=== PATIENT | female | born 1970 | race Asian ===

== ENCOUNTER → 2017-07-17 | Outpatient (CLI) | payer BC ==
--- NOTE | 2017-07-17 16:06 | Diagnostic Imaging Report ---
#[id number] - [id number] #UNILATERAL LEFT DIGITAL DIAGNOSTIC MAMMOGRAM WITH CAD: 07/17/2017 Comparison is made to exams dated: 06/17/2017 mammogram, 10/17/2014 mammogram, 09/15/2013 mammogram and 09/12/2013 mammogram - [facility]. The tissue of the left breast is heterogeneously dense. This may lower the sensitivity of mammography. Current study was also evaluated with a Computer Aided Detection (CAD) system. There are several areas of loosely grouped calcifications (some of which may be new) in the left breast. None of these calcifications have a particularily suspicious appearance. No significant masses or other findings are seen in the breast. IMPRESSION: PROBABLY BENIGN A follow-up mammogram in 6 months is recommended to demonstrate stability in these areas of calcifications. The patient was notified of these findings. José Coleman Jr., D.O. cw/:07/17/2017 13:40:16 Edging Machine Catcher: Tiffany COX(Lexy)(M), [facility] letter sent: Followup Recommended Mammogram BI-RADS: 3 Probably benign
== END ==
LOC: MAMMO 10:41
PROVIDERS: ATTEND Obstetrics & Gynecology
DX: N64.59 Other signs and symptoms in breast (principal)

== ENCOUNTER → 2017-07-31 | Day surgery (SDC) | payer BC ==
[~2017-07-31] MED LIST: BUPIVACAINE 0.25% 30ML SDV INJ ONE; DEXAMETHASONE SOD PHOS INJ 4 MG/ML VIAL ONE; FENTANYL CITRATE/PF 100MCG/2 ML INJ ONE; KETOROLAC TROMETHAMINE 30 MG/ML VIAL ONE; LIDOCAINE HCL 2% LOCAL INJ 5 ML SDV VIAL INJ ONE; MIDAZOLAM HCL 2 MG/2 ML VIAL ONE; MORPHINE SULFATE 2 MG/ML SYR ONE; ONDANSETRON HCL INJ 2 MG/ML VIAL ONE; PROPOFOL IV EMULSION 10 MG/ML 20 ML VIAL ONE; SEVOFLURANE INHAL SOLN 250 ML PEN BTL ONE
--- NOTE | 2017-07-31 13:11 | Operative Report ---
DATE OF PROCEDURE: July 31, 2017 PREOPERATIVE DIAGNOSIS: Right breast mass. POSTOPERATIVE DIAGNOSIS: Right breast mass. OPERATION PERFORMED: Right partial mastectomy. ANESTHESIA: General. COMPLICATIONS: None. ESTIMATED BLOOD LOSS: Minimal. DESCRIPTION OF PROCEDURE: With the patient lying in bed in the supine position, under good general anesthesia, the right breast was prepped with Betadine solution and draped in the usual manner. An incision was made at the edge of the right breast at the tail of the of the axilla where the palpable mass was present. Incision was taken down through the subcutaneous tissue, and immediately a diffusely encapsulated mass consistent with axillary breast tissue was encountered. This was slowly and carefully from the surrounding structures. It appeared to be independent of the main breast tissue, and it extended all the way to the lateral aspect of the pectoralis major and up into the lower axilla. The mass was slowly and carefully from all of the structures. All bleeding points were either electrocoagulated or ligated with 2-0 Vicryl, and the mass was totally and completely removed and sent for pathological examination. Frozen section came back consistent with benign tissue. The whole area was thoroughly irrigated. Perfect hemostasis was ascertained. The breast and axillary tissue were then reapproximated with interrupted sutures of 2-0 chromic, and the skin was closed with subcuticular 5-0 Vicryl. Benzoin and Steri-Strips were applied. A dressing was placed. The sponge, lap and needle count was correct. The patient tolerated the procedure well and returned to the recovery room in stable condition. Job#: [id number]
== END | disposition home or self-care (01) ==
LOC: OR 08:50
PROVIDERS: ATTEND Surgery
DX: N63.10 Unspecified lump in the right breast, unspecified quadrant (principal)
CPT/HCPCS: 19301; 81025; 88305; 88329; J1100; J1885; J2001; J2250; J2270; J2405

== ENCOUNTER → 2018-12-28 | Outpatient (CLI) | payer BC ==
--- NOTE | 2018-12-29 09:41 | Diagnostic Imaging Report ---
#[id number] - MGDXBIL #BILATERAL DIGITAL DIAGNOSTIC MAMMOGRAM WITH CAD: 12/28/2018 Comparison is made to exams dated: 07/17/2017 mammogram, 06/17/2017 mammogram and 10/17/2014 mammogram - [facility]. Current study contains 10 films. The tissue of both breasts is heterogeneously dense. This may lower the sensitivity of mammography. Current study was also evaluated with a Computer Aided Detection (CAD) system. There are benign calcifications in both breasts. There also are post operative findings in the right breast with a scar present in the right axilla. No significant masses, calcifications, or other findings are seen in either breast. There has been no significant interval change. IMPRESSION: BENIGN There is no mammographic evidence of malignancy. A 1 year screening mammogram is recommended. The patient will be notified by letter of the results. José Coleman Jr., D.O. cw/:12/28/2018 15:17:46 Procurement Services Manager: Tiffany COX(Lexy)(M), [facility] letter sent: Compared to Prior B9 Mammogram BI-RADS: 2 Benign
== END ==
LOC: MAMMO 10:33
PROVIDERS: ATTEND Internal Medicine
DX: Z09 Encounter for follow-up examination after completed treatment for conditions other than malignant neoplasm (principal); R92.1 Mammographic calcification found on diagnostic imaging of breast
CPT/HCPCS: 77066

== ENCOUNTER → 2020-05-11 | Outpatient (CLI) | payer BC | LOC: MAMMO 10:25 | PROVIDERS: ATTEND Internal Medicine | DX: Z12.31 Encounter for screening mammogram for malignant neoplasm of breast (principal) | CPT/HCPCS: 77067 ==

== ENCOUNTER → 2021-10-22 | Outpatient (CLI) | payer BC | LOC: MAMMO 11:50 | PROVIDERS: ATTEND Internal Medicine | DX: Z12.31 Encounter for screening mammogram for malignant neoplasm of breast (principal) | CPT/HCPCS: 77067 ==